=== PATIENT | male | born 1945 | race Caucasian/White ===

== ENCOUNTER 2018-01-12 08:21 | Inpatient (IN) | payer OTHER, MEDICARE ==
[2018-01-12] MEDS ORDERED: LR 1,000 ML IV ONE (08:33)
[2018-01-12] MEDS ORDERED: CLINDAMYCIN 900 MG/DEXTROSE 50 ML IV ONE (09:22)
--- NOTE | 2018-01-12 09:24 | PDHPUP ---
History & Physical Update H&P update statement: This history and physical update is based on an assessment of the patient which was completed after admission or registration (within 24 hours), but prior to the surgery/procedure. H&P update: H&P reviewed & patient examined, no change in patient's condition since H&P completed
[2018-01-12] MEDS ORDERED: LIDOCAINE 1% 300 MG/30 ML SDV ONE (09:44)
[2018-01-12] MEDS ORDERED: BUPIVACAINE 0.5% 30 ML SDV ONE (09:44)
[2018-01-12] MEDS ORDERED: ONDANSETRON 4 MG/2 ML VIAL IVP PRN ×2 (09:45→12:11)
[2018-01-12] MEDS ORDERED: DEXAMETHASONE 4 MG/ML VIAL IVP PRN (09:45)
[2018-01-12] MEDS ORDERED: HYDROmorphONE/DILAUDID 1 MG/ML INJ IVP PRN (09:45)
[2018-01-12] MEDS ORDERED: ALBUTEROL 3 ML DEYVIAL IH PRN (09:45)
[2018-01-12] MEDS ORDERED: NALOXONE HCL 0.4 MG/ML INJ IVP PRN (09:45)
[2018-01-12] MEDS ORDERED: ACETAMINOPHEN 500 MG TAB PO PRN (09:45)
[2018-01-12] MEDS ORDERED: fentaNYL 100 MCG/2 ML INJ IVP PRN (09:45)
--- NOTE | 2018-01-12 09:47 | PDANEPAE ---
ANE History of Present Illness B Inguinal Hernia ANE Past Medical History - Cardiovascular History Hx Hypertension: Yes Hx Arrhythmias: No Hx Chest Pain: No Hx Coronary Artery / Peripheral Vascular Disease: No Hx CHF / Valvular Disease: No Hx Palpitations: No - Pulmonary History Hx COPD: Yes Hx Asthma/Reactive Airway Disease: No Hx Recent Upper Respiratory Infection: No Hx Oxygen in Use at Home: No O2 in Use at Home (L/minute): NOC O2 2L Hx Sleep Apnea: Yes Sleep Apnea Screening Result - Last Documented: Positive Pulmonary History Comment: SOME SOB W/EXERTION - Neurologic History Hx Cerebrovascular Accident: No Hx Seizures: No Hx Dementia: No Neurologic History Comment: MIGRAINES - Endocrine History Hx Diabetes: Yes Endocrine History Comment: DM - WAS ON JANUVIA FOR YRS/ TRIAL OFF MED CURRENTLY. A1C - 6.0 2 WKS AGO - Renal History Hx Renal Disorders: No - Liver History Hx Hepatic Disorders: No - Neurological & Psychiatric Hx Hx Neurological and Psychiatric Disorders: No Neurological / Psychiatric History Comment: DEPRESSION. PTSD - Cancer History Hx Cancer: Yes Cancer History Comment: BASAL CELL - EAR - Congenital Disorder History Hx Congenital Disorders: No - GI History Hx Gastrointestinal Disorders: Yes Gastrointestinal History Comment: ACID REFLUX - Other Health History Other Health History: BRUISES EASILY. ECZEMA. DVT X2 - 2015 LEG & ABD 2000 - Surgical History Prior Surgeries: BACK SURGERY X2 LUMBAR FUSION. ENDOSCOPIES. SPLENECTOMY 2014. PROSTATE. ORAL SURGERYJ. CATARACTS. SEPTOPLASTY/SINUS/THROAT. INTESTINAL RESECTION. L LEG I&D X2. LAMINECTOMY LUMBAR. UMB HERNIA X2 ANE Review of Systems Review of Systems: - Exercise capacity METS (RN): 3 METS ANE Patient History - Allergies Allergies/Adverse Reactions: JOHANNY Inhibitors Allergy (Verified 01/11/18 17:30) SW THROAT adhesive tape Allergy (Verified 01/11/18 17:30) HIVES & RAW BLEEDING SKIN cephalexin [From Keflex] Allergy (Verified 01/11/18 17:28) SW THROAT mold Allergy (Verified 01/12/18 09:20) Penicillins Allergy (Verified 01/11/18 17:28) SW THROAT - Home Medications Home Medications: Advair Hfa 115-21 Mcg Inhaler 01/11/18 [Last Taken 01/11/18] Atorvastatin Calcium 01/11/18 [Last Taken 01/11/18] Carbidopa-Levo 10-100 mg Odt 01/11/18 [Last Taken 01/11/18] Coumadin 01/11/18 [Last Taken 12/29/17] Endocet 5-325 Tablet 01/11/18 [Last Taken 01/11/18] Gabapentin 01/11/18 [Last Taken 01/11/18] Lamotrigine 01/11/18 [Last Taken 1 Week Ago ~01/05/18] Losartan Potassium 01/11/18 [Last Taken 01/11/18] Lyrica 01/11/18 [Last Taken 01/11/18] Namenda 5 mg (*) 01/11/18 [Last Taken 01/11/18] Nexium 01/11/18 [Last Taken 01/11/18] Vit D3-Vit K/Berberine/Hops 01/11/18 [Last Taken 01/11/18] buPROPion 01/11/18 [Last Taken 01/11/18] morphINE 01/11/18 [Last Taken 01/11/18] Lovenox 01/12/18 [Last Taken 01/11/18] - NPO status NPO Since - Liquids (Date): 01/11/18 NPO Since - Liquids (Time): 04:00 NPO Since - Solids (Date): 01/11/18 NPO Since - Solids (Time): 21:00 - Smoking Hx Smoking Status: Former smoker - Family Anes Hx Family Hx Anesthesia Complications: NEG ANE Labs/Vital Signs - Vital Signs Blood Pressure: 166/82 Heart Rate: 72 Respiratory Rate: 18 O2 Sat (%): 96 Height: 175.26 cm Weight: 104.326 kg ANE Physical Exam - Airway Neck exam: FROM Mallampati Score: Class 2 Mouth exam: normal dental/mouth exam - Pulmonary Pulmonary: clear to auscultation - Cardiovascular Cardiovascular: regular rate and rhythym - ASA Status ASA Status: III ANE Anesthesia Plan Anesthesia Plan: GA w LMA
[2018-01-12] MEDS ORDERED: fentaNYL 100 MCG/2 ML INJ ONE ×2 (09:57→12:48)
[2018-01-12] MEDS ORDERED: PROPOFOL 200 MG/20 ML VIAL ONE (09:57)
[2018-01-12] MEDS ORDERED: LIDOCAINE 2% 2 ML INJ ONE ×2 (09:59)
[2018-01-12 10:08] LABS: INR 1.07 (0.83-1.16); PROTIME(PATIENT) 14.1 SEC (12.0-15.0)
[2018-01-12] MEDS ORDERED: METOCLOPRAMIDE 10 MG/2 ML VIAL ONE (10:16)
[2018-01-12] MEDS ORDERED: ONDANSETRON 4 MG/2 ML VIAL ONE (10:16)
--- NOTE | 2018-01-12 12:04 | POSTOPPROG ---
Post Op Note Date of Operation: 01/12/18 Surgeon: Jose De Jesus Ley Anesthesiologist: Dr. Mina Anesthesia: LMA Pre-op Diagnosis: BIH Post-op Diagnosis: BIH Procedure: Open BIHR Inf/Abcess present in the surg proc area at time of surgery?: No EBL: Minimal
--- NOTE | 2018-01-12 12:05 | POSTANESTH ---
Post Anesthetic Evaluation Cardiovascular Status: Normal, Stable Respiratory Status: Requires Airway Assist Level of Consciousness/Mental Status: Moderately Sleepy Pain Control: Adequate, Prn Tx Ordered Nausea/Vomiting Control: Adequate, Prn Tx Ordered Complications Possibly Related to Anesthesia: None Noted
[2018-01-12] MEDS ORDERED: oxyCODONE IR 5 MG TAB ONE (12:49)
[2018-01-12] MEDS ORDERED: oxyCODONE IR 5 MG TAB PO PRN (13:04)
--- NOTE | 2018-01-12 14:28 | GOP ---
[f rep st] OPERATIVE REPORT DATE OF OPERATION: 01/12/2018 SURGEON: Leno Ley MD ANESTHESIA: Laryngeal mask anesthesia per Dr. Mina. PREOPERATIVE DIAGNOSIS: Bilateral inguinal hernia. POSTOPERATIVE DIAGNOSIS: Bilateral inguinal hernia. PROCEDURE PERFORMED: Open bilateral inguinal hernia repair. FINDINGS: The patient had a large lipoma and a small direct hernia on the right side, and a large in direct with a moderate lipoma on the left side. ESTIMATED BLOOD LOSS: 20 mL. INDICATIONS: A 72-year-old male with a history of bilateral groin bulge and discomfort. Risks and b enefits of the procedure discussed with patient's family. Their questions were answered, and they wi shed to proceed. DESCRIPTION OF PROCEDURE: The patient was placed in the supine position. After the induction of ivy quate IV sedation, the patient was prepped and draped in the standard surgical fashion. Marcaine 0.5 % was injected throughout the groin for local anesthesia. An oblique incision was made and carried to the subcutaneous tissue using cautery. The external oblique was incised in the direction of its fib ers. The cord was then surrounded at the pubic tubercle. The cord structures were then carefully dis sected, preserving the vas and vessels. The hernia was then dissected down to preperitoneal fat and reduced. A plug was fashioned from Marlex and secured using 2-0 Vicryl interrupted. An onlay patch was created and affixed using 2-0 Prolene. Enough room was seen for the cord and an instrument tip. Good hemostasis was noted. The external oblique and Glo's were approximated using 3-0 Vicryl in a running fashion. Skin was closed with 5-0 Biosyn subcuticular. The wound was sterilely dressed, th e patient was taken to the post-anesthesia care unit in stable condition. COMPLICATIONS: None. DRAINS: None. ADDENDUM: Both sides were done in the same fashion. The premade plug and patch were used on each si de, medium on the right, and large on the left. /[id number]/MODL
[2018-01-12] MEDS ORDERED: LORazepam 1 MG TAB PO PRN (15:06)
[2018-01-12] MEDS ORDERED: CYCLOBENZAPRINE 10 MG TAB PO PRN (15:06)
[2018-01-12] MEDS: GABAPENTIN 300 MG CAP PO SCH ×2 (15:51→21:48)
[2018-01-12] MEDS: OXYCODONE/APAP 5/325 TAB PO PRN ×2 (15:51→21:54)
[2018-01-12] MEDS ORDERED: MIRTAZAPINE 30 MG TAB PO SCH (21:00)
[2018-01-12] MEDS ORDERED: GLIMEPIRIDE 2 MG TAB PO SCH (21:00)
[2018-01-12] MEDS ORDERED: morphINE SR 15 MG TAB PO SCH (21:00)
[2018-01-12] MEDS: PANTOPRAZOLE SODIUM 40 MG TAB PO SCH (21:48)
[2018-01-12] MEDS: buPROPion SR 150 MG TAB PO SCH (21:48)
[2018-01-13] MEDS: ATORVASTATIN CALCIUM 20 MG TAB PO SCH (07:46)
[2018-01-13] MEDS: GABAPENTIN 300 MG CAP PO SCH ×2 (07:47→20:21)
[2018-01-13] MEDS: buPROPion SR 150 MG TAB PO SCH ×2 (07:47→20:21)
[2018-01-13] MEDS: PANTOPRAZOLE SODIUM 40 MG TAB PO SCH ×2 (07:47→20:21)
[2018-01-13] MEDS: OXYCODONE/APAP 5/325 TAB PO PRN ×3 (07:47→23:29)
[2018-01-13] MEDS ORDERED: LISINOPRIL 20 MG TAB PO SCH (09:00)
[2018-01-13] MEDS ORDERED: TAMSULOSIN HCL 0.4 MG CAP PO SCH (09:00)
[2018-01-13] MEDS ORDERED: FINASTERIDE 5 MG TAB PO SCH (09:00)
--- NOTE | 2018-01-13 10:12 | SOAPPROG ---
SOAP Progress Note Assessment/Plan: Assessment: s/p open BIHR, stable. PT consultation for ambulation. Poss d/c if PT and patient concur. Plan: 01/13/18 10:09 Subjective: Patient c/o diffuse body pain, worst in lower back. Also notes GRUBER. Able to ambulate with max assist. Rachel po, voiding. Objective: Vital Signs Temp Pulse Resp BP Pulse Ox 36.8 C 91 16 139/83 H 92 01/13/18 07:31 01/13/18 07:31 01/13/18 07:31 01/13/18 07:31 01/13/18 07:31 01/12/18 01/13/18 01/14/18 05:59 05:59 05:59 Intake Total 520 Output Total 445 Balance 75 PT 14.1 SEC (12.0-15.0) 01/12/18 09:45 INR 1.07 (0.83-1.16) 01/12/18 09:45 Alert, NAD Abd soft, NTTP Inc C/D/I Scrotal swelling and ecchymosis. BLE with edema, L>R. ICD10 Worksheet Patient Problems: Problems Problem Status Onset Bilat ing hernia Acute - ICD10 Problem Qualifiers (1) Bilat ing hernia
--- NOTE | 2018-01-13 11:35 | ASMTCMCOM ---
CM Note CM Note Notes: Spoke w/pt re; dc poc, pt states he has several physical issues and right now his "balance is not good." PT recommends SNF, pt is agreeable. He lives with his in [facility] and does not drive. Pt would like referral to go to [facility] Plan: SNF Date Signed: 01/13/2018 11:33 AM Electronically Signed By:Jacey Welch RN
[2018-01-13] MEDS ORDERED: CLOBETASOL 0.05% 15 GM CRTUBE TP PRN (12:01)
[2018-01-13] MEDS ORDERED: OXYCODONE/APAP 5/325 TAB PO PRN (12:16)
[2018-01-13] MEDS ORDERED: oxyCODONE IR 5 MG TAB PO PRN (12:17)
--- NOTE | 2018-01-13 19:23 | GCON ---
[f rep st] CONSULTATION DATE OF CONSULTATION: 01/13/2018 REFERRING PHYSICIAN: Leno Ley MD PRIMARY CARE PROVIDER: Dr. Rubio. REQUESTING PHYSICIAN: Dr. Andrea Ley, general surgery. CHIEF COMPLAINT: Abdominal discomfort and difficulty with mobility. HISTORY OF PRESENT ILLNESS: Mr. 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 Ley. Postoperatively, he was stable, but had difficulty with mobility secondary to postoperative pain. This is on top of his already chronic pain. Due to his multiple medical issues the Hospitalist Service was asked to consult on this case for assessment assistance. The patient has been on a bridge with Lovenox. He states 2 prior thrombosis in the past 1 was a portal vein thrombosis and 1 was left lower extremity deep vein thrombosis. He has been on indefinite anticoagulation with Coumadin since the recurrence several years ago. PAST MEDICAL HISTORY: 1. Hypertension. 2. Obstructive sleep apnea. 3. Diabetes mellitus type 2, uncertain control. 4. Hyperlipidemia. 5. History of recurrent thrombosis 1 being portal vein thrombosis and the other being a left lower extremity deep vein thrombosis. 6. History of diverticulitis. 7. BPH. 8. History of necrotizing fasciitis of the left lower extremity with subsequent chronic venous stasis. PAST SURGICAL HISTORY: 1. Appendectomy. 2. Umbilical hernia repair. 3. History of necrotizing fasciitis of left lower extremity. 4. Cataract surgery. MEDICATIONS: Initially dictated medication list was not current and deleted. Please refer to admission medication rec. form. ALLERGIES: 1. Penicillin. 2. JOHANNY inhibitors. 3. Cephalexin. FAMILY HISTORY: Dad from heart disease when patient was 2-year-old. Mom lived and apparently from old age. SOCIAL HISTORY: The patient is currently . He has 2 children and 2 grandchildren. He is a current pipe smoker. REVIEW OF SYSTEMS: CONSTITUTIONAL: No complaints of any fevers or chills. ENT : No recent upper respiratory illnesses. CARDIOVASCULAR: No complaints of any chest pains, palpitations, or syncopal episodes. RESPIRATORY: No complaints of shortness of breath or productive cough. GI: Abdominal pain localizing in the areas of his surgery. Otherwise no nausea or vomiting. No bloody stools. : No report of any difficulty with urination. NEUROLOGIC: No complaints of headaches or focal weakness. HEMATOLOGIC: No history of any pulmonary embolism, but history of portal vein thrombosis as well as left lower extremity deep vein thrombosis. PSYCHIATRIC: No history of anxiety or depression. ENDOCRINE: Positive for diabetes and no complaints of polyuria or heat intolerance. SKIN: No new skin rashes other than bruising associated with his surgery. MUSCULOSKELETAL: No focal joint pains. PHYSICAL EXAM: VITAL SIGNS: Temperature 36.4, blood pressure 137/78, heart rate 91, respirations 16, saturating 94% on 1 L nasal cannula. GENERAL: The patient is sitting in a chair at the bedside. He is awake, alert, conversant, able to provide much of his history. HEENT: Extraocular movements appear intact. No scleral icterus is noted. He wears eye glasses. NECK: Supple. No thyroid enlargement noted. CHEST: Clear on auscultation with normal respiratory effort. HEART: Regular. No murmurs are appreciated. ABDOMEN: Nondistended. He has tenderness with palpation in the lower quadrants in the area of the inguinal canals. Normal bowel sounds. : Notable ecchymoses around the scrotum with associated swelling. No Soto catheter in place. EXTREMITIES: Chronic venous stasis changes of the skin noted in the left lower extremity. No significant erythema is noted. There is pitting edema which is notable on the left and less so on the right. NEUROLOGIC: Cranial nerves 2 through 12 appear intact with 5 out of 5 strength in extremities. LABS: INR is 1.07. ASSESSMENT/PLAN: 1. Bilateral hernia repair--patient is status post bilateral hernia repair. Physical Therapy and Occupational Therapy have been ordered to assist with his mobility after his surgery. Continue pain medications as currently in place. 2. Abdominal pain--seems to be all localizing to the area of his hernia repair- -will obtain a comprehensive metabolic panel and repeat complete blood count for further assessment. Monitor closely and consider imaging if not improving as we progress after his surgery. 3. Lower extremity weakness--patient states it seems to be associated to pain related to surgery. Physical therapy and occupational therapy have been ordered and we will see how he progresses in the coming days. 4. Acute hypoxic respiratory failure--patient is needing small amount of oxygen to maintain normal saturations. This may be related to atelectasis and difficulty in taking deep breath after his surgery. 5. Hypertension, controlled. We will plan on continuing with current lisinopril 20 mg daily. 6. Obstructive sleep apnea--continue CPAP as patient does at home. I will discuss with him about bring his home CPAP machine here to the hospital. 7. Diabetes mellitus type 2, uncertain control but by report apparently has a hemoglobin A1c which was less than 6, so he has been taken off his oral diabetes medications just in the past week. Monitor closely during the hospitalization. 8. Hyperlipidemia--continue current atorvastatin. We probably can hold temporarily the fenofibrate and Lovaza. 9. BPH. We will continue with finasteride and Flomax. 10. History of recurrent thrombosis--continue bridging with Lovenox. Monitor hemoglobin closely. DISPOSITION: We will see how he progresses with Physical Therapy and Occupational Therapy and then develop a safe place of discharge depending on how he does. /[id number]/MODL MTDD
[2018-01-13] MEDS: oxyCODONE IR 5 MG TAB PO PRN (20:20)
[2018-01-13] MEDS: PREGABALIN 150 MG CAP PO SCH (20:21)
[2018-01-13] MEDS: METOPROLOL TARTRATE 50 MG TAB PO SCH (20:21)
[2018-01-13] MEDS: ENOXAPARIN 100 MG/ML SYR SC SCH (20:21)
[2018-01-13] MEDS ORDERED: PANTOPRAZOLE SODIUM 40 MG TAB PO SCH (21:00)
[2018-01-14] MEDS: oxyCODONE IR 5 MG TAB PO PRN ×4 (08:16→21:21)
[2018-01-14] MEDS: OXYCODONE/APAP 5/325 TAB PO PRN (08:23)
[2018-01-14] MEDS ORDERED: LOSARTAN POTASSIUM 50 MG TAB PO SCH (09:00)
[2018-01-14] MEDS: ATORVASTATIN CALCIUM 20 MG TAB PO SCH (09:36)
[2018-01-14] MEDS: TAMSULOSIN HCL 0.4 MG CAP PO SCH (09:36)
[2018-01-14] MEDS: METOPROLOL TARTRATE 50 MG TAB PO SCH (09:36)
[2018-01-14] MEDS: PREGABALIN 150 MG CAP PO SCH ×2 (09:36→21:14)
[2018-01-14] MEDS: buPROPion SR 150 MG TAB PO SCH ×2 (09:36→21:15)
[2018-01-14] MEDS: PANTOPRAZOLE SODIUM 40 MG TAB PO SCH ×2 (09:36→21:15)
--- NOTE | 2018-01-14 09:36 | SOAPPROG ---
SOAP Progress Note Assessment/Plan: Assessment: s/p open BIHR, stable. Cont PT/OT. Appreciate IM involvement. Plan: 01/13/18 10:09 01/14/18 09:35 Subjective: Patient still c/o pain, improved from yesterday. Minimal ambulation with PT. Rachel po, no N/V. Objective: Vital Signs Temp Pulse Resp BP Pulse Ox 37.1 C 72 16 108/71 89 L 01/14/18 08:00 01/14/18 08:00 01/14/18 08:00 01/14/18 08:00 01/14/18 08:00 01/13/18 01/14/18 01/15/18 05:59 05:59 05:59 Intake Total 520 Output Total 445 90 Balance 75 -90 PT 14.1 SEC (12.0-15.0) 01/12/18 09:45 INR 1.07 (0.83-1.16) 01/12/18 09:45 Alert, NAD RRR Abd soft, NTTP Inc without erythema Ecchymosis unchanged. ICD10 Worksheet Patient Problems: Problems Problem Status Onset Bilat ing hernia Acute - ICD10 Problem Qualifiers (1) Bilat ing hernia
[2018-01-14] MEDS: ENOXAPARIN 100 MG/ML SYR SC SCH ×2 (09:37→21:16)
[2018-01-14] MEDS: GABAPENTIN 300 MG CAP PO SCH ×2 (09:37→21:14)
[2018-01-14 09:55] LABS: INR 1.11 (0.83-1.16); PROTIME(PATIENT) 14.5 SEC (12.0-15.0)
[2018-01-14] MEDS: Memantine Hcl [Namenda Xr] 14 MG PO SCH (10:19)
[2018-01-14] MEDS: morphINE SR 15 MG TAB PO SCH ×2 (11:10→21:15)
[2018-01-14] MEDS ORDERED: NS 500 ML IV ONE (13:28)
[2018-01-14] MEDS ORDERED: NS 1,000 ML IV SCH (13:30)
--- NOTE | 2018-01-14 16:34 | HOSPPROG ---
Hospitalist Progress Note Assessment/Plan: Subjective Follow-up on abdominal discomfort and weakness status post bilateral hernia repair. Patient states his pain is still significant. We did resume his home MS Contin and as needed oxycodone. He states he had an episode of urinary incontinence earlier today. No subjective fevers or chills. Objective Vital signs as detailed below Exam General-patient is sitting in chair at the bedside when I 1st came into the room he was sleeping in no acute distress Heart-regular no murmurs appreciated Lungs-Clear to auscultation with normal respiratory effort Abdomen-soft nontender in the upper quadrants normal bowel sounds stable ecchymoses and swelling around the entire scrotum Extremities-left lower extremity edema which is appearing chronic Labs as detailed below Assessment and plan Bilateral hernia repair-pain appears better controlled this afternoon as compared this morning according to nursing. Incision sites appear to be healing appropriately. Continue other recommendations per Dr. Ley recommendations. Abdominal pain-suspect secondary to bilateral hernia repair. At this time interval suspected any other secondary process going on but will continue to monitor closely. Continue with current MS Contin 15 mg twice a day which is his baseline and as needed oxycodone at 5-10 mg every 4 hr as needed. We do have IV morphine in case of breakthrough pain. Lower extremity weakness-I suspect this is likely related to deconditioning and pain related to his hernia repair. Continue work with PT and OT placement short -term rehab prior to returning home. Acute hypoxic respiratory failure-suspect secondary to atelectasis related to surgery. He does use oxygen at nighttime with CPAP machine at home. Wean as able. Chest imaging if increased oxygen need. Hypotension-bolus of normal saline was ordered today along with maintenance IV fluids at least overnight. I suspect this is related to pain medications. Leukocytosis-probably stress response. Will reassess in the morning. Continue monitor for fevers. Hypertension-will hold antihypertensives at this point time in light of hypertension today. Obstructive sleep apnea-I encouraged patient to bring his home CPAP machine with him here to the hospital. Diabetes mellitus type 2-patient states that he was recently taken off of oral medications as he had a controlled hemoglobin A1c less than 6. Hyperlipidemia-continue his statin therapy. BPH-continue Flomax. 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 Continue with Lovenox anticipate starting Coumadin tomorrow presuming stable hemoglobin level. Disposition-anticipating he will need short-term rehab placement before returning home. Objective: Vital Signs Temp Pulse Resp BP Pulse Ox 36.4 C 61 16 78/46 L 92 01/14/18 11:32 01/14/18 11:32 01/14/18 08:00 01/14/18 12:50 01/14/18 11:32 Laboratory Results 01/14/18 09:30 01/14/18 09:30 01/13/18 01/14/18 01/15/18 05:59 05:59 05:59 Intake Total 520 Output Total 445 90 Balance 75 -90 PT 14.5 SEC (12.0-15.0) 01/14/18 09:30 INR 1.11 (0.83-1.16) 01/14/18 09:30 ICD10 Worksheet Patient Problems: Problems Problem Status Onset Bilat ing hernia Acute
[2018-01-14] MEDS: METOPROLOL TARTRATE 25 MG TAB PO SCH (21:15)
[2018-01-15 05:38] LABS: INR 1.14 (0.83-1.16); PROTIME(PATIENT) 14.8 SEC (12.0-15.0)
[2018-01-15] MEDS: oxyCODONE IR 5 MG TAB PO PRN ×4 (06:10→18:31)
[2018-01-15] MEDS: PANTOPRAZOLE SODIUM 40 MG TAB PO SCH ×2 (08:17→20:25)
[2018-01-15] MEDS: morphINE SR 15 MG TAB PO SCH ×2 (08:17→20:26)
[2018-01-15] MEDS: PREGABALIN 150 MG CAP PO SCH ×2 (08:17→20:26)
[2018-01-15] MEDS: TAMSULOSIN HCL 0.4 MG CAP PO SCH (08:17)
[2018-01-15] MEDS: ATORVASTATIN CALCIUM 20 MG TAB PO SCH (08:17)
[2018-01-15] MEDS: GABAPENTIN 300 MG CAP PO SCH ×2 (08:17→20:25)
[2018-01-15] MEDS: METOPROLOL TARTRATE 25 MG TAB PO SCH ×2 (08:17→20:26)
[2018-01-15] MEDS: buPROPion SR 150 MG TAB PO SCH ×2 (08:17→20:27)
[2018-01-15] MEDS: ENOXAPARIN 100 MG/ML SYR SC SCH ×2 (08:19→20:27)
[2018-01-15] MEDS: Memantine Hcl [Namenda Xr] 14 MG PO SCH (08:36)
[2018-01-15] MEDS: WARFARIN SODIUM 3 MG TAB PO SCH (15:11)
[2018-01-15] MEDS ORDERED: WARFARIN SODIUM 5 MG TAB PO SCH (16:00)
--- NOTE | 2018-01-15 16:03 | ASMTCMCOM ---
CM Note CM Note Notes: Spoke with pt regarding d/c plans. Pt approved for [facility] and will discharge tomorrow to [facility]. Also provided pt with resources from internet regarding service dog per pt request. Pt amenable to d/c plan. CM to follow. D/C plan: [facility] tomorrow. Date Signed: 01/15/2018 04:03 PM Electronically Signed By:Luz Mcgarry
--- NOTE | 2018-01-15 17:35 | HOSPPROG ---
Hospitalist Progress Note Assessment/Plan: Subjective Follow-up on abdominal discomfort and weakness. Status post bilateral hernia repair. No complaints of lower back pain. He did have an episode again of urinary incontinence. No stool incontinence. He states he has a bowel movement every 4 3-4 day. Objective Vital signs as detailed below Exam General-patient is sitting upright in his bed at the time of my evaluation he was awake alert oriented no acute distress Heart-regular no murmurs appreciated Lungs-Clear to auscultation with normal respiratory effort Abdomen-nontender in the upper quadrants normal bowel sounds stable to slightly improve swelling and ecchymoses of the scrotum -no Soto catheter in place Extremities-chronic left lower extremity edema with skin changes consistent with chronic venous stasis Labs as detailed below Assessment and Plan Bilateral hernia repair-pain appears well controlled and swelling seems slightly less to me today. Continue other recommendations per Dr. eLy. Abdominal pain-suspect secondary to bilateral hernia repair. I do not suspect any other intra-abdominal process at this point time but follow closely. Pain is well controlled with current pain regimen. Continue work with PT and OT as his pain was limiting his mobility. Acute hypoxic respiratory failure-suspect secondary to atelectasis related to surgery. He does use oxygen at nighttime with CPAP machine at home. Wean as able. Hypotension-improved today suspect secondary to pain medications yesterday. Leukocytosis-suspecting stress response. It is trending down today. Monitor for fevers. Hypertension-continue to hold antihypertensives. Obstructive sleep apnea-I encouraged patient to bring his home CPAP machine with him here to the hospital. Diabetes mellitus type 2-patient states that he was recently taken off of oral medications as he had a controlled hemoglobin A1c less than 6. Hyperlipidemia-continue his statin therapy. BPH-continue Flomax. 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 Continue with Lovenox anticipate starting Coumadin tomorrow presuming stable hemoglobin level. Disposition-anticipating he will need short-term rehab placement before returning home. Objective: Vital Signs Temp Pulse Resp BP Pulse Ox 36.7 C 64 18 149/69 H 90 L 01/15/18 15:38 01/15/18 15:38 01/15/18 15:38 01/15/18 15:38 01/15/18 15:38 Laboratory Results 01/15/18 04:59 01/15/18 04:59 01/14/18 01/15/18 01/16/18 05:59 05:59 05:59 Intake Total 400 Output Total 90 325 Balance -90 400 -325 PT 14.8 SEC (12.0-15.0) 01/15/18 04:59 INR 1.14 (0.83-1.16) 01/15/18 04:59 ICD10 Worksheet Patient Problems: Problems Problem Status Onset Bilat ing hernia Acute
--- NOTE | 2018-01-15 20:06 | PDMN ---
Medical Necessity Medical necessity: Change to IP, as of 01/13/18, per MD; los >2 mn for ongoing management abdominal pain, acute hypoxic respiratory failure & LE weakness s/p bilateral hernia repair POD #1; requiring further workup/monitoring, Hospitalist consult, pain management & therapies; hx HTN, diabetes, recurrent thrombosis & CHANTELLE
[2018-01-16 05:09] LABS: INR 1.08 (0.83-1.16); PROTIME(PATIENT) 14.2 SEC (12.0-15.0)
[2018-01-16] MEDS: oxyCODONE IR 5 MG TAB PO PRN ×3 (08:05→16:48)
[2018-01-16] MEDS: buPROPion SR 150 MG TAB PO SCH (08:06)
[2018-01-16] MEDS: GABAPENTIN 300 MG CAP PO SCH (08:06)
[2018-01-16] MEDS: PREGABALIN 150 MG CAP PO SCH (08:06)
[2018-01-16] MEDS: ATORVASTATIN CALCIUM 20 MG TAB PO SCH (08:06)
[2018-01-16] MEDS: PANTOPRAZOLE SODIUM 40 MG TAB PO SCH (08:06)
[2018-01-16] MEDS: morphINE SR 15 MG TAB PO SCH (08:07)
[2018-01-16] MEDS: ENOXAPARIN 100 MG/ML SYR SC SCH (08:07)
[2018-01-16] MEDS: METOPROLOL TARTRATE 25 MG TAB PO SCH (08:07)
[2018-01-16] MEDS: TAMSULOSIN HCL 0.4 MG CAP PO SCH (08:07)
[2018-01-16] MEDS: Memantine Hcl [Namenda Xr] 14 MG PO SCH (08:42)
--- NOTE | 2018-01-16 08:59 | SOAPPROG ---
SOAP Progress Note Assessment/Plan: Assessment: s/p open BIHR, stable. Cont PT/OT. Likely d/c to rehab today, d/w patient at length, questions answered. Plan: 01/13/18 10:09 01/14/18 09:35 01/16/18 08:57 Subjective: Patient states pain slightly improved, still c/o severe pain with movement. Rachel po. Objective: Vital Signs Temp Pulse Resp BP Pulse Ox 36.7 C 68 16 135/73 H 93 01/16/18 08:00 01/16/18 08:00 01/16/18 08:00 01/16/18 08:00 01/16/18 08:00 Laboratory Results 01/16/18 04:50 01/16/18 04:50 01/15/18 01/16/18 01/17/18 05:59 05:59 05:59 Intake Total 400 850 Output Total 625 Balance 400 225 PT 14.2 SEC (12.0-15.0) 01/16/18 04:50 INR 1.08 (0.83-1.16) 01/16/18 04:50 Alert, NAD Abd soft, NTTP Inc C/D/I Ecchymosis unchanged, no erythema ICD10 Worksheet Patient Problems: Problems Problem Status Onset Bilat ing hernia Acute - ICD10 Problem Qualifiers (1) Bilat ing hernia
--- NOTE | 2018-01-16 14:42 | PDIAF ---
- Diagnosis Code Status: Full Code - Medication Management Discharge Medications: Medications to Continue on Transfer Atorvastatin Calcium [Lipitor 20 mg (*)] 20 mg PO DAILY 01/11/18 [Last Taken Unknown] Carbidopa/Levo Cr 50/200Mg [SINEMET CR 50/200 MG (*)] 1 tab PO TID 01/11/18 [ Last Taken Unknown] Cholecalciferol Vit D3 [Vitamin D3 2000 units tab (OTC)] 2,000 units PO BID [Last Taken Unknown] Gabapentin [Neurontin 300 MG (*)] 600 mg PO HS 01/11/18 [Last Taken Unknown] Warfarin Sodium [Coumadin 5MG (*)] 5 mg PO DAILY16 01/11/18 [Last Taken 12/26/17 ] buPROPion SR [Wellbutrin 150mg SR (*)] 150 mg PO BID 01/11/18 [Last Taken Unknown] Acet/Caffeine/Buta Fioricet [Fioricet (*)] 1 - 2 each PO Q6 PRN 01/12/18 [Last Taken Unknown] Advair Unk Str 2 inh IH BID 01/12/18 [Last Taken Unknown] Clobetasol 0.05% [Temovate Cream] 1 farhan TP BID PRN 01/12/18 [Last Taken Unknown] Compounded Pain Cream 1 farhan TP QID 01/12/18 [Last Taken Unknown] Cyclobenzaprine [Flexeril 10 MG (*)] 10 mg PO QID PRN 01/12/18 [Last Taken Unknown] Esomeprazole Mag Trihydrate [Nexium] 40 mg PO BID 01/12/18 [Last Taken Unknown] Folic Acid [Folic Acid 1 MG (*)] 1 mg PO BID 01/12/18 [Last Taken Unknown] Gabapentin [Neurontin 300 MG (*)] 300 mg PO DAILY 01/12/18 [Last Taken Unknown] Losartan Potassium [Cozaar 50 mg (*)] 50 mg PO DAILY 01/12/18 [Last Taken Unknown] Memantine HCl [Namenda Xr] 14 mg PO DAILY 01/12/18 [Last Taken Unknown] Metoprolol Tartrate [Lopressor 50 mg (*)] 50 mg PO BID 01/12/18 [Last Taken Unknown] Multivitamins [Multivitamin (*)] 1 each PO DAILY 01/12/18 [Last Taken Unknown] Pregabalin [Lyrica 150mg (*)] 150 mg PO DAILY 01/12/18 [Last Taken Unknown] Pregabalin [Lyrica 150mg (*)] 300 mg PO HS 01/12/18 [Last Taken Unknown] Tamsulosin HCl [Flomax 0.4 MG (*)] 0.8 mg PO DAILY 01/12/18 [Last Taken Unknown] Warfarin Sodium [Coumadin 1MG (*)] 1 mg PO DAILY16 01/12/18 [Last Taken 12/26/17 ] Enoxaparin [Lovenox 100 MG (*)] 100 mg SC BID syr 01/16/18 [Last Taken Unknown] morphINE SR [Ms Contin/Oramorph 15 mg (*)] 15 mg PO BID PRN #14 tab 01/16/18 [ Last Taken Unknown] oxyCODONE HCL/ACETAMINOPHEN [Percocet 10-325 mg Tablet] 1 each PO Q6HRS PRN #20 tablet 01/16/18 [Last Taken Unknown] Discharge Medications: Refer to the Discharge Home Medication list for PRN reason. - Orders Services needed: Physical Therapy, Occupational Therapy Diet Recommendation: no restrictions on diet Diet Texture: Regular Texture Diet - Labs/Radiology PT/INR Date: 01/18/18 - Follow Up Care Current Providers and Referrals: JAYA ADKINS MD [Other]
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
[2018-01-16 15:37] VITALS: BP 137/75
[2018-01-16] MEDS: WARFARIN SODIUM 3 MG TAB PO SCH (16:47)
--- NOTE | 2018-01-16 17:32 | HOSPPROG ---
Hospitalist Progress Note Assessment/Plan: Subjective Follow-up on abdominal discomfort and weakness. No acute events overnight. We were able to obtain placement for rehab. No further episodes of urinary incontinence Objective Vital signs as detailed below Exam General-patient is sitting upright in his bed at the time of my evaluation he was awake alert oriented no acute distress Heart-regular no murmurs appreciated Lungs-Clear to auscultation with normal respiratory effort Abdomen-nontender in the upper quadrants normal bowel sounds much improved swelling and ecchymoses of the scrotum -no Soto catheter in place Extremities-chronic left lower extremity edema with skin changes consistent with chronic venous stasis Labs as detailed below Assessment and Plan Bilateral hernia repair-pain appears well controlled and swelling again seems less to me today. Continue other recommendations per Dr. Ley. Abdominal pain-suspect secondary to bilateral hernia repair. I do not suspect any other intra-abdominal process at this point time but follow closely. Pain is well controlled with current pain regimen. Continue work with PT and OT as his pain was limiting his mobility. Acute hypoxic respiratory failure-suspect secondary to atelectasis related to surgery. He does use oxygen at nighttime with CPAP machine at home. Wean as able. Hypotension-improved today suspect secondary to pain medications yesterday. Leukocytosis-suspecting stress response. It is trending down today. Monitor for fevers. Hypertension-continue to hold antihypertensives. Obstructive sleep apnea-I encouraged patient to bring his home CPAP machine with him here to the hospital. Diabetes mellitus type 2-patient states that he was recently taken off of oral medications as he had a controlled hemoglobin A1c less than 6. Hyperlipidemia-continue his statin therapy. BPH-continue Flomax. 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 Continue with Lovenox anticipate starting Coumadin tomorrow presuming stable hemoglobin level. I have written an order for an INR to be obtained in 48 hr. I recommend continuation of Lovenox along with Coumadin until INR 2.0 or greater. Disposition-transfer to [facility] today. Objective: Vital Signs Temp Pulse Resp BP Pulse Ox 36.7 C 64 18 137/75 H 89 L 01/16/18 15:36 01/16/18 15:36 01/16/18 15:36 01/16/18 15:36 01/16/18 15:36 Laboratory Results 01/16/18 04:50 01/16/18 04:50 01/15/18 01/16/18 01/17/18 05:59 05:59 05:59 Intake Total 939 853 3681 Output Total 625 Balance 068 380 9134 PT 14.2 SEC (12.0-15.0) 01/16/18 04:50 INR 1.08 (0.83-1.16) 01/16/18 04:50 ICD10 Worksheet Patient Problems: Problems Problem Status Onset Bilat ing hernia Acute
--- NOTE | 2018-01-16 18:04 | ASMTDCNOTE ---
Case Management Discharge Discharge Order Complete? Answers: Yes Patient to Obtain Answers: Other Notes: lori Medications Transportation Arranged Answers: Other [facility] w/c Transport will Pick (Date 01/16/2018 05:30 PM & Time) Faxed Final Orders Answers: Yes Notes: to lori Agency/Facility Transfer Answers: Yes Report Printed & Faxed to Receiving Agency Family Notified Answers: Yes Notes: by patient Discharge Comments Notes: Spoke with pt this morning and suggested he call once discharge orders are in and transport is arranged by lori. [facility]ori to pick patient up at 17:30. Faxed final orders. RN to call report. Date Signed: 01/16/2018 06:03 PM Electronically Signed By:Susan Farrell RN
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
== END 2018-01-16 18:15 | DRG 939 ==
LOC: COP 08:21 → EDSTATUS 09:30 → F2W 12:10 → F3E 14:00 → OBSVTOIN 01-13 14:38
PROVIDERS: ADMIT Surgery; ATTEND Surgery
PROC: 0YUA0JZ Supplement Bilateral Inguinal Region with Synthetic Substitute, Open Approach (ICD-10-PCS; principal; 2018-01-12 09:30)
DX: G89.18 Other acute postprocedural pain (principal); J96.01 Acute respiratory failure with hypoxia; K40.20 Bilateral inguinal hernia, without obstruction or gangrene, not specified as recurrent; J98.11 Atelectasis; G47.33 Obstructive sleep apnea (adult) (pediatric); E11.9 Type 2 diabetes mellitus without complications; N40.0 Benign prostatic hyperplasia without lower urinary tract symptoms; K21.9 Gastro-esophageal reflux disease without esophagitis; I10 Essential (primary) hypertension; E78.5 Hyperlipidemia, unspecified; Z79.01 Long term (current) use of anticoagulants; Z86.718 Personal history of other venous thrombosis and embolism
CPT/HCPCS: 97110-GP; 97116-GP; 97162-GP; 97166-GO; 97530-GP; 97535-GO; C1781; G8978-GP-CK; G8979-GP-CI; G8980-GP-CJ; G8987-GO-CL; G8988-GO-CJ; J1650; J2270; J2310; J2405; J2704; J2765; J3010; J7613